=== PATIENT | male | born 1945 | race Caucasian/White ===

== ENCOUNTER → 2018-01-12 | Outpatient (CLI) | payer MEDICARE, OTHER ==
--- NOTE | 2018-01-12 16:12 | RADIOLOGY REPORT (SQ) ---
EXAM DESCRIPTION: MRI LT LOWER JOINT COMBO COMPLETED DATE/TIME: 01/12/2018 12:56 pm REASON FOR STUDY: LEFT ANKLE PAIN M25.572 PAIN IN LEFT ANKLE AND JOINTS OF LEFT FOOT COMPARISON: None. TECHNIQUE: Left ankle images acquired and stored on PACS. Multiplanar images include fat sensitive s equences as T1, fluid sensitive sequences as FST2/STIR, cartilage sensitive sequences as FSPD, and gr adient echo sequences. Additional postcontrast enhanced imaging. Contrast: ProHance GFR: 40 LIMITATIONS: None. FINDINGS: BONE MARROW: No alteration of signal to suggest marrow replacement or edema. No occult fra cture. No large osteophytes. No enhancement. EFFUSIONS: No effusions. OSSEOUS ARTICULATIONS: Normal tibiotalar, subtalar, talonavicular and calcaneocuboid joints. TALAR DOME AND TIBIAL PLAFOND: Mild cartilaginous loss of the central plafond and talar dome. Small medial osteochondral lesion. ACHILLES TENDON: Intact without partial or full-thickness tear. No adjacent bursal fluid or edema. TIBIALIS ANTERIOR TENDON: Intact without edema at the 1st MT attachment. TIBIALIS POSTERIOR TENDON: Normal morphology and no edema at the navicular attachment. No tendon rizo th fluid. FLEXOR HALLUCIS LONGUS AND FLEXOR DIGITORUM TENDONS: Extensive fluid in the flexor hallucis longus te ndon sheath. No roland tear. PERONEUS LONGUS AND BREVIS TENDON: Normal morphology and no tendon sheath fluid. No subluxation. ATFL, CFL, PTFL: Chronic tear of the anterior talofibular ligament. Reminder ligaments are intact. DELTOID LIGAMENT: Visualized components intact. TARSAL TUNNEL: No masses. No muscle atrophy. SINUS TARSI: Minimal reactive edema middle compartment subtalar region. PLANTAR FASCIA: No signal alteration or tear. ADJACENT SOFT TISSUES: No masses. OTHER: No enhancing lesions. IMPRESSION: No enhancing lesions. Minimal inflammation in the sinus tarsus E. Large amount of fluid is present in the flexor hallucis longus tendon sheath. TECHNICAL DOCUMENTATION: JOB ID: [id number]- All Rights Reserved Reading location - IP/workstation name: [email or web address] [id number]
== END ==
LOC: RAD 12:00
PROVIDERS: ATTEND Physician Assistant
DX: M25.572 Pain in left ankle and joints of left foot (principal)
CPT/HCPCS: 82565; 73723; A9576

== ENCOUNTER → 2018-01-26 | Outpatient (CLI) | payer MEDICARE, OTHER ==
--- NOTE | 2018-01-26 10:33 | RADIOLOGY REPORT (SQ) ---
EXAM DESCRIPTION: CT ABD/PELVIS NO ORAL OR IV COMPLETED DATE/TIME: 01/26/2018 9:15 am REASON FOR STUDY: PROSTATE CA (C61) C61 MALIGNANT NEOPLASM OF PROSTATE COMPARISON: None. TECHNIQUE: CT scan of the abdomen and pelvis performed without intravenous or oral contrast. Images reviewed with lung, soft tissue, and bone windows. Reconstructed coronal and sagittal MPR images revi ewed. All images stored on PACS. All CT scanners at this facility use dose modulation, iterative reconstruction, and/or weight based d osing when appropriate to reduce radiation dose to as low as reasonably achievable (ALARA). [facility]: Dose Right [facility]: CareDose [facility]: Dose Right [facility]: Teradose 4D [facility]: [employer] RADIATION DOSE: CT Rad equipment meets quality standard of care and radiation dose reduction techniq ues were employed. CTDIvol: 15.1 mGy. DLP: 827 mGy-cm.mGy. LIMITATIONS: None. FINDINGS: LOWER CHEST: No significant findings. No nodules or infiltrates. NON-CONTRASTED LIVER, SPLEEN, ADRENALS: Evaluation limited by lack of IV contrast. No identified sign ificant masses. PANCREAS: No masses. No peripancreatic inflammatory changes. GALLBLADDER: No identified stones by CT criteria. No inflammatory changes to suggest cholecystitis. RIGHT KIDNEY AND URETER: No suspicious masses. Assessment limited by lack of IV contrast. No signif icant calcifications. No hydronephrosis or hydroureter. LEFT KIDNEY AND URETER: No suspicious masses. Assessment limited by lack of IV contrast. No signifi cant calcifications. No hydronephrosis or hydroureter. AORTA AND RETROPERITONEUM: No aneurysm. No retroperitoneal masses or adenopathy. BOWEL AND PERITONEAL CAVITY: No obvious masses or inflammatory changes. No free fluid. APPENDIX: Normal. PELVIS, BLADDER, AND ABDOMINAL WALL:Prostatectomy. Bladder normal. BONES: No significant findings. OTHER: No other significant finding. IMPRESSION: NO SIGNIFICANT OR ACUTE PROCESS IN THE ABDOMEN OR PELVIS. No metastases. COMMENT: Quality ID # 436: Final reports with documentation of one or more dose reduction techniques (e.g., Automated exposure control, adjustment of the mA and/or kV according to patient size, use of iterative reconstruction technique) TECHNICAL DOCUMENTATION: JOB ID: [id number] [employer]- All Rights Reserved Reading location - IP/workstation name: [email or web address]
--- NOTE | 2018-01-26 13:24 | RADIOLOGY REPORT (SQ) ---
EXAM DESCRIPTION: NM WHOLE BODY BONE SCAN COMPLETED DATE/TIME: 01/26/2018 1:00 pm REASON FOR STUDY: PROSTATE CA (C61) C61 MALIGNANT NEOPLASM OF PROSTATE COMPARISON: CT abdomen pelvis 01/26/2018, 12/24/2009 Whole-body bone scan 04/24/2008 RADIONUCLIDE AND DOSE: 21.5 millicuries Tc99m HDP. The route of agent administration: Intravenous. ADDITIONAL DRUGS AND DOSES: None. TECHNIQUE: Routine delayed images at 3 hours post radionuclide injection acquired of the bony skelet on including anterior and posterior whole-body projections and additional focused images as needed. LIMITATIONS: None. FINDINGS: BONES: There is focal increased uptake over the right frontal bone and right bony orbit re gion. This is of uncertain clinical significance. Consider CT brain for followup. Remainder of the skeletal activity is otherwise unremarkable aside from mild increased uptake at the left ankle, likely related to osteoarthritis. KIDNEYS: Symmetric excretion without obstruction. OTHER: No other significant finding. IMPRESSION: Focal increased uptake over the right orbit and right frontal bone. Consider CT brain f or follow-up, with review of bone windows. Increased uptake at the left ankle likely from osteoarthritis or old trauma COMMENT: Quality measure 147: Current bone scan is compared with any available plain radiographs, p rior bone scans, and CT/MRI. TECHNICAL DOCUMENTATION: JOB ID: [id number] [employer]- All Rights Reserved Reading location - IP/workstation name: [email or web address]
== END ==
LOC: RAD 08:39
PROVIDERS: ATTEND Physician Assistant Medical
DX: C61 Malignant neoplasm of prostate (principal)
CPT/HCPCS: 78306; 74176; A9561; Q9969

== ENCOUNTER → 2018-01-29 | Outpatient (CLI) | payer MEDICARE, OTHER ==
--- NOTE | 2018-01-29 10:38 | RADIOLOGY REPORT (SQ) ---
EXAM DESCRIPTION: CT HEAD WITHOUT COMPLETED DATE/TIME: 01/29/2018 10:15 am REASON FOR STUDY: ABN FINDINGS ON DIAGNOSTIC IMAGING OF SKULL AND HEAD R93.0 ABNORMAL FINDINGS ON D X IMAGING OF SKULL AND HEAD, NEC COMPARISON: Bone scan dated 01/26/2018. TECHNIQUE: Axial images acquired through the brain without intravenous contrast. Images reviewed wi th bone, brain and subdural windows. Additional sagittal and coronal reconstructions were generated. Images stored on PACS. All CT scanners at this facility use dose modulation, iterative reconstruction, and/or weight based d osing when appropriate to reduce radiation dose to as low as reasonably achievable (ALARA). [facility]: Dose Right [facility]: CareDose [facility]: Dose Right [facility]: Teradose 4D [facility]: [employer] RADIATION DOSE: CT Rad equipment meets quality standard of care and radiation dose reduction techniq ues were employed. CTDIvol: 48.6 mGy. DLP: 904 mGy-cm. mGy. LIMITATIONS: None. FINDINGS: VENTRICLES: Normal size and contour. CEREBRUM: No masses. No hemorrhage. No midline shift. No evidence for acute infarction. Normal gra y/white matter differentiation. No areas of low density in the white matter. CEREBELLUM: No masses. No hemorrhage. No alteration of density. No evidence for acute infarction. EXTRAAXIAL SPACES: No fluid collections. No masses. ORBITS AND GLOBE: No intra- or extraconal masses. Normal contour of globe without masses. CALVARIUM: No fracture. There is a subtle sclerotic lesion in the right frontal bone corresponding t o the finding on bone scan. This measures approximately 2 cm in diameter. No bony destruction. Jus t inferior to this bone lesion is a focal area of mild soft tissue irregularity. There is mild incre ased density in the subcutaneous fatty tissues with a small focal depression in the outline of the sc an, suggesting retraction (axial image 18). PARANASAL SINUSES: No fluid or mucosal thickening. SOFT TISSUES: No mass or hematoma. OTHER: No other significant finding. IMPRESSION: 1. FOCAL SUBTLE SCLEROTIC LESION IN THE RIGHT FRONTAL BONE DESCRIBED WITH ADJACENT CHANGES IN THE SKIN AND THE SUBCUTANEOUS FATTY TISSUES. THE SOFT TISSUE FINDINGS SUGGEST AN AREA OF SCARRING, PRESU MABLY RELATED TO OLD INJURY OR POSSIBLY PRIOR SOFT TISSUE INFECTION OR INFLAMMATION RESULTING IN SCAR . RECOMMEND CORRELATION WITH PRIOR HISTORY AND EVALUATION OF THE SKIN IN THIS REGION. THE SKULL LES ION HAS A NONSPECIFIC APPEARANCE. THERE IS NO SIGNIFICANT BONY DESTRUCTION. CANNOT EXCLUDE OSTEOBLA STIC LESION ALTHOUGH NON MALIGNANT SCLEROTIC BONE LESION COULD BE ANOTHER POSSIBILITY. 2. NORMAL BRAIN CT WITHOUT CONTRAST. EVIDENCE OF ACUTE STROKE: NO. COMMENT: Quality ID # 436: Final reports with documentation of one or more dose reduction techniques (e.g., Automated exposure control, adjustment of the mA and/or kV according to patient size, use of iterative reconstruction technique) TECHNICAL DOCUMENTATION: JOB ID: [id number] [employer]- All Rights Reserved Reading location - IP/workstation name: [email or web address] [id number]
== END ==
LOC: RAD 09:50
PROVIDERS: ATTEND Internal Medicine
DX: R93.0 Abnormal findings on diagnostic imaging of skull and head, not elsewhere classified (principal)
CPT/HCPCS: 70450

== ENCOUNTER → 2018-02-10 | Outpatient (CLI) | payer MEDICARE, OTHER ==
--- NOTE | 2018-02-10 13:23 | RADIOLOGY REPORT (SQ) ---
EXAM DESCRIPTION: MRI LT UPPER JOINT WITHOUT COMPLETED DATE/TIME: 02/10/2018 11:29 am REASON FOR STUDY: M25.512 PAIN IN LEFT SHOULDER M25.512 PAIN IN LEFT SHOULDER COMPARISON: None. TECHNIQUE: Left shoulder images acquired and stored on PACS. Multiplanar imaging to include fat sens itive sequences such as T1, water sensitive sequences such as FST2/STIR, cartilage sensitive sequence s such as FSPD/gradient-echo sequences. LIMITATIONS: None. FINDINGS: BONE MARROW AND CORTEX: No worrisome bone lesions or marrow replacement. No occult fractur es. JOINT OR BURSAL EFFUSION: No significant joint or bursal fluid. No suggestion of loose bodies. GLENO-HUMERAL ARTICULATION: Normal articulation. No subluxation. No cystic change. No osteophytes or cartilage loss. ACROMION AND AC JOINT: Mild predominantly dorsal degenerative slight overgrowth. No subacromial co mpromise. ROTATOR CUFF AND INTERVAL: Mild undersurface/interstitial partial tear along cuff insertion. This li es at the interface between supraspinatus and infraspinous portions. No suggestion of high-grade par tial or full-thickness tear. No cuff muscle atrophy. Mild scar in the rotator interval, possibly reflecting adhesive capsulitis. LABRUM AND BICEPS LABRAL COMPLEX: Irregular fraying in the labrum. Biceps intact. REMAINDER OF LABRUM AND IGHL : No evidence of tear. Thickening and scar along the inferior anterior capsule. Likely reflective of adhesive capsulitis. PERIARTICULAR AND ADJACENT SOFT TISSUES: No masses or abnormal nodes. OTHER: No other significant finding. IMPRESSION: 1. Relatively focal partial cuff tear. No full-thickness breech. 2. Probable adhesive capsulitis, secondary signs as above. TECHNICAL DOCUMENTATION: JOB ID: [id number] [employer]- All Rights Reserved Reading location - IP/workstation name: [email or web address]
== END ==
LOC: RAD 11:17
PROVIDERS: ATTEND Physician Assistant
DX: M25.512 Pain in left shoulder (principal)

== ENCOUNTER → 2018-10-15 | Outpatient (CLI) | payer MEDICARE, OTHER ==
--- NOTE | 2018-10-15 12:06 | RADIOLOGY REPORT (SQ) ---
EXAM DESCRIPTION: CT ABD/PELVIS WITH IV ORAL COMPLETED DATE/TIME: 10/15/2018 10:09 am REASON FOR STUDY: LLQ PAIN (R10.32), ABD TENDERNESS (R10.817), PROSTATE CA (C61) R10.32 LEFT LOWER QUADRANT PAIN R10.817 GENERALIZED ABDOMINAL TENDERNESS R10.814 LEFT LOWER QUADRANT ABDOMINAL TENDER NESS COMPARISON: 01/26/2018 TECHNIQUE: CT scan of the abdomen and pelvis performed using helical scanning technique with dynamic intravenous contrast injection. Oral contrast. Images reviewed with lung, soft tissue, and bone win dows. Reconstructed coronal and sagittal MPR images reviewed. Delayed images for evaluation of the ur inary system also acquired. All images stored on PACS. All CT scanners at this facility use dose modulation, iterative reconstruction, and/or weight based d osing when appropriate to reduce radiation dose to as low as reasonably achievable (ALARA). [facility]: Dose Right [facility]: CareDose [facility]: Dose Right [facility]: Teradose 4D [facility]: [employer] CONTRAST TYPE AND DOSE: contrast/concentration: Isovue 350.00 mg/ml; Total Contrast Delivered: 100.0 ml; Total Saline Delivered: 72.0 ml RENAL FUNCTION: Creatinine 1.5 RADIATION DOSE: CT Rad equipment meets quality standard of care and radiation dose reduction techniq ues were employed. CTDIvol: 10.9 - 12.3 mGy. DLP: 1295 mGy-cm.. LIMITATIONS: None. FINDINGS: LOWER CHEST: No significant findings. No nodules or infiltrates. LIVER: Normal size. No masses. No dilated ducts. SPLEEN: Normal size. No focal lesions. PANCREAS: No masses. No significant calcifications. No adjacent inflammation or peripancreatic fluid collections. Pancreatic duct not dilated. GALLBLADDER: No identified stones by CT criteria. No inflammatory changes to suggest cholecystitis. ADRENAL GLANDS: No significant masses or asymmetry. RIGHT KIDNEY AND URETER: No solid masses. No significant calcifications. No hydronephrosis or hyd roureter. LEFT KIDNEY AND URETER: No solid masses. No significant calcifications. No hydronephrosis or hydr oureter. AORTA AND VESSELS: No aneurysm. No dissection. Renal arteries, SMA, celiac without stenosis. RETROPERITONEUM: No retroperitoneal adenopathy, hemorrhage or masses. BOWEL AND PERITONEAL CAVITY: Considerable stool is present. No obvious bowel mass or inflammation. APPENDIX: Not identified. PELVIS: No mass. No free fluid. Normal bladder. ABDOMINAL WALL: No masses. No hernias. BONES: No significant or acute findings. OTHER: No other significant finding. IMPRESSION: Possible constipation. No acute findings in the abdomen or pelvis. TECHNICAL DOCUMENTATION: JOB ID: [id number] Quality ID # 436: Final reports with documentation of one or more dose reduction techniques (e.g., Au tomated exposure control, adjustment of the mA and/or kV according to patient size, use of iterative reconstruction technique) 2010 [employer]- All Rights Reserved Reading location - IP/workstation name: [email or web address]
== END ==
LOC: RAD 09:11
PROVIDERS: ATTEND Internal Medicine Gastroenterology
DX: C61 Malignant neoplasm of prostate (principal); R10.817 Generalized abdominal tenderness
CPT/HCPCS: 74177; 82565

== ENCOUNTER → 2018-12-06 | Outpatient (CLI) | payer MEDICARE, OTHER ==
[2018-12-06 14:09] LABS: ABSOLUTE EOSINOPHILS # (AUTO) 0.1 10^3/uL (0.0-0.6); ABSOLUTE LYMPHOCYTES (AUTO) 1.8 10^3/uL (0.5-4.7); ABSOLUTE MONOCYTES (AUTO) 0.6 10^3/uL (0.1-1.4); ABSOLUTE NEUT (AUTO) 3.8 10^3/uL (1.7-8.2); BASOPHILS % (AUTO) 0.7 % (0-2); HEMATOCRIT 43.6 % (37.9-51.0); HEMOGLOBIN 15.1 g/dL (13.5-17.0); LYMPHOCYTES % (AUTO) 27.8 % (13-45); MEAN CORPUSCULAR HEMOGLOBIN 30.4 pg (27.0-33.4); MEAN CORPUSCULAR HGB CONC 34.7 g/dL (32.0-36.0); MEAN CORPUSCULAR VOLUME 88 fl (80-97); PLATELET COUNT 207 10^3/uL (150-450); RED BLOOD COUNT 4.97 10^6/uL (4.35-5.55); RED CELL DISTRIBUTION WIDTH 12.9 % (11.5-14.0); SEGMENTED NEUTROPHILS % (AUTO) 60.5 % (42-78); TOTAL CELLS COUNTED % (AUTO) 100 %; WHITE BLOOD COUNT 6.4 10^3/uL (4.0-10.5)
[2018-12-06 14:21] LABS: ALANINE AMINOTRANSFERASE 19 U/L (21-72); ALBUMIN 4.7 g/dL (3.5-5.0); ALKALINE PHOSPHATASE 73 U/L (38-126); ANION GAP 14 (5-19); ASPARTATE AMINO TRANSFERASE 28 U/L (17-59); BILIRUBIN,DIRECT 0.3 mg/dL (0.0-0.4); BILIRUBIN,TOTAL 1.1 mg/dL (0.2-1.3); BLOOD UREA NITROGEN 22 mg/dL (7-20); CALCIUM 10.3 mg/dL (8.4-10.2); CARBON DIOXIDE 25 mmol/L (22-30); CHLORIDE 106 mmol/L (98-107); GLUCOSE 134 mg/dL (75-110); LIPASE 69.1 U/L (23-300); POTASSIUM 5.5 mmol/L (3.6-5.0); SODIUM 144.8 mmol/L (137-145); TOTAL PROTEIN 7.5 g/dL (6.3-8.2)
== END ==
LOC: OD 12:38
PROVIDERS: ATTEND Physician Assistant Surgical
DX: R10.13 Epigastric pain (principal); R11.0 Nausea
CPT/HCPCS: 36415; 80048; 80076; 83690; 85025

== ENCOUNTER → 2019-07-29 | Outpatient (CLI) | payer MEDICARE, OTHER ==
--- NOTE | 2019-07-29 09:04 | RADIOLOGY REPORT (SQ) ---
EXAM DESCRIPTION: CT CHEST WITHOUT COMPLETED DATE/TIME: 07/29/2019 7:47 am REASON FOR STUDY: PROSTATE CA (C61) C61 MALIGNANT NEOPLASM OF PROSTATE COMPARISON: None. TECHNIQUE: CT scan performed of the chest without intravenous contrast. Images reviewed with lung, soft tissue and bone windows. Reconstructed coronal and sagittal MPR images reviewed. All images st ored on PACS. All CT scanners at this facility use dose modulation, iterative reconstruction, and/or weight based d osing when appropriate to reduce radiation dose to as low as reasonably achievable (ALARA). [facility]: Dose Right [facility]: CareDose [facility]: Dose Right [facility]: Teradose 4D [facility]: [facility] RADIATION DOSE: CT Rad equipment meets quality standard of care and radiation dose reduction techniq ues were employed. CTDIvol: 7.0 - 8.5 mGy. DLP: 730 mGy-cm. mGy. LIMITATIONS: No technical limitations. FINDINGS: LUNGS AND PLEURA: There is a 5 mm nodule in the right lung which is flattened, 1 mm thick, and closely aligned with the minor fissure. No other nodules or masses, infiltrates, or pneumothora x. No pleural effusions or pleural calcifications. HILAR AND MEDIASTINAL STRUCTURES: No identified masses or abnormal nodes. No obvious aneurysm. HEART AND VASCULAR STRUCTURES: No aneurysm. No pericardial effusion. UPPER ABDOMEN: No significant findings. Limited exam. THYROID AND OTHER SOFT TISSUES: No masses. No adenopathy. BONES: No significant finding. HARDWARE: None in the chest. OTHER: No other significant findings. IMPRESSION: NODULE IN THE RIGHT LUNG WHICH HAS CHARACTERISTICS OF AN INCIDENTAL LYMPH NODE ALONG THE MINOR FISSURE. NO OTHER SIGNIFICANT FINDING ON NON-CONTRASTED CHEST CT. TECHNICAL DOCUMENTATION: JOB ID: [id number] Quality ID # 436: Final reports with documentation of one or more dose reduction techniques (e.g., Au tomated exposure control, adjustment of the mA and/or kV according to patient size, use of iterative reconstruction technique) 2010 [employer]- All Rights Reserved Reading location - IP/workstation name: [email or web address]
--- NOTE | 2019-07-29 09:08 | RADIOLOGY REPORT (SQ) ---
EXAM DESCRIPTION: CT ABD/PELVIS NO ORAL OR IV COMPLETED DATE/TIME: 07/29/2019 7:47 am REASON FOR STUDY: PROSTATE CA (C61) C61 MALIGNANT NEOPLASM OF PROSTATE COMPARISON: 10/15/2018. TECHNIQUE: CT scan of the abdomen and pelvis performed without intravenous or oral contrast. Images reviewed with lung, soft tissue, and bone windows. Reconstructed coronal and sagittal MPR images revi ewed. All images stored on PACS. All CT scanners at this facility use dose modulation, iterative reconstruction, and/or weight based d osing when appropriate to reduce radiation dose to as low as reasonably achievable (ALARA). [facility]: Dose Right [facility]: CareDose [facility]: Dose Right [facility]: Teradose 4D [facility]: [employer] RADIATION DOSE: mGy. LIMITATIONS: None. FINDINGS: LOWER CHEST: No significant findings. No nodules or infiltrates. NON-CONTRASTED LIVER, SPLEEN, ADRENALS: Evaluation limited by lack of IV contrast. No identified sign ificant masses. PANCREAS: No masses. No peripancreatic inflammatory changes. GALLBLADDER: No identified stones by CT criteria. No inflammatory changes to suggest cholecystitis. RIGHT KIDNEY AND URETER: No suspicious masses. Assessment limited by lack of IV contrast. Small cirilo yceal calculi. No hydronephrosis or hydroureter. LEFT KIDNEY AND URETER: No suspicious masses. Assessment limited by lack of IV contrast. Small davion ceal calculi. No hydronephrosis or hydroureter. AORTA AND RETROPERITONEUM: No aneurysm. No retroperitoneal masses or adenopathy. BOWEL AND PERITONEAL CAVITY: No obvious masses or inflammatory changes. No free fluid. APPENDIX: Not visualized. PELVIS, BLADDER, AND ABDOMINAL WALL:Previous prostatectomy. Numerous surgical clips. No abnormal ma sses. No free fluid. Bladder normal. BONES: No significant findings. OTHER: No other significant finding. IMPRESSION: SMALL NONOBSTRUCTING CALYCEAL CALCULI IN BOTH KIDNEYS. NO OTHER SIGNIFICANT OR ACUTE VA OCESS IN THE ABDOMEN OR PELVIS. COMMENT: Quality ID # 436: Final reports with documentation of one or more dose reduction techniques (e.g., Automated exposure control, adjustment of the mA and/or kV according to patient size, use of iterative reconstruction technique) TECHNICAL DOCUMENTATION: JOB ID: [id number] [employer] All Rights Reserved Reading location - IP/workstation name: [email or web address]
--- NOTE | 2019-07-29 15:19 | RADIOLOGY REPORT (SQ) ---
EXAM DESCRIPTION: NM WHOLE BODY BONE SCAN COMPLETED DATE/TIME: 07/29/2019 1:44 pm REASON FOR STUDY: PROSTATE CA (C61 C61 MALIGNANT NEOPLASM OF PROSTATE COMPARISON: 01/26/2018 RADIONUCLIDE AND DOSE: 20 millicuries Tc99m HDP. The route of agent administration: Intravenous. ADDITIONAL DRUGS AND DOSES: None. TECHNIQUE: Routine delayed images at 3 hours post radionuclide injection acquired of the bony skelet on including anterior and posterior whole-body projections and additional focused images as needed. LIMITATIONS: None. FINDINGS: BONES: There is persistent focal uptake in the calvarium and in the right orbit. No new a reas of abnormal uptake are present. KIDNEYS: Symmetric excretion without obstruction. OTHER: No other significant finding. IMPRESSION: Persistent increased uptake in the calvarium in right orbit. No new findings. COMMENT: Quality measure 147: Current bone scan is compared with any available plain radiographs, p rior bone scans, and CT/MRI. TECHNICAL DOCUMENTATION: JOB ID: [id number] [employer]- All Rights Reserved Reading location - IP/workstation name: [email or web address]
== END ==
LOC: RAD 07:10
PROVIDERS: ATTEND Internal Medicine
DX: C61 Malignant neoplasm of prostate (principal); N20.0 Calculus of kidney
CPT/HCPCS: 78306; 71250; 74176; A9561; Q9969

== ENCOUNTER 2019-12-04 21:52 | Emergency (ER) | payer MEDICARE, OTHER ==
[2019-12-04] MEDS ORDERED: NORMAL SALINE 1000 ML 1,000 ML IV ONE (22:56)
[2019-12-04] MEDS ORDERED: ONDANSETRON HCL INJ/PF 4 MG/2 ML SDV IV ONE (22:56)
--- NOTE | 2019-12-04 22:58 | ER Document Report ---
ED Medical Screen (RME) - General Chief Complaint: Lower Abdominal Pain Stated Complaint: ABDOMINAL PAIN Time Seen by Provider: 12/04/19 22:47 Primary Care Provider: KHANG PHILLIPS MD [Primary Care Provider] - Follow up as needed TRAVEL OUTSIDE OF THE [place] IN LAST 30 DAYS: No - HPI Notes: 12/04/19 22:57 74-year-old male to the emergency department with complaints of left lower quadrant abdominal pain that has been getting progressively worse since Thursday night. He states he and his went out to dinner in [place] and prior to leaving the restaurant he started to experience diarrhea. They then had a stop second time on the way home because he had another episode of diarrhea. When they got home he started to have nausea vomiting and diarrhea and this is negin nued through today. He states that initially his entire abdomen hurt but now it is localized to the left lower side. He states that he seen blood in both his emesis and in his diarrhea. He denies any recent travel. He denies any recent antibiotic use. He denies any sick contacts. Everybody had roast beef, mashed potatoes, broccoli and no one else got sick. I performed a brief medical screening exam on the patient determined that the patient needs further evaluation and management by main side provider. I have placed initial orders to help expedite care. - Related Data Allergies/Adverse Reactions: codeine Allergy (Verified 12/04/19 22:55) morphine Allergy (Verified 12/04/19 22:55) Home Medications: Xtandi. Omeprazole. Gabapentin. loasartan. Loratadine. Calcium+ D oyster. Montelukast. Tramadol. atorvastatin. finasteride. pantoprazole. megestrol acetate Past Medical History - Social History Chew tobacco use (# tins/day): No Frequency of alcohol use: None Drug Abuse: None - Past Medical History Cardiac Medical History: Reports: Hx Hypertension Pulmonary Medical History: Reports: Hx Bronchitis - 2009 Denies: Hx Tuberculosis Endocrine Medical History: Reports: Hx Diabetes Mellitus Type 2 Musculoskeltal Medical History: Reports Hx Arthritis Past Surgical History: Reports: Hx Urinary Tract Surgery - radical prostectomy. Denies: Hx Pacemaker - Immunizations Hx Diphtheria, Pertussis, Tetanus Vaccination: Yes Physical Exam - Vital signs Vitals: Temp Pulse Resp BP Pulse Ox 98.3 F 73 18 134/76 H 96 12/04/19 22:00 12/04/19 22:00 12/04/19 22:00 12/04/19 22:00 12/04/19 22:00 Course - Vital Signs Vital signs: Temp Pulse Resp BP Pulse Ox 98.3 F 73 18 134/76 H 96 12/04/19 22:00 12/04/19 22:00 12/04/19 22:00 12/04/19 22:00 12/04/19 22:00 Doctor's Discharge - Discharge Referrals: KHANG PHILLIPS MD [Primary Care Provider] - Follow up as needed
[2019-12-04 23:39] LABS: ABSOLUTE EOSINOPHILS # (AUTO) 0.1 10^3/uL (0.0-0.6); ABSOLUTE LYMPHOCYTES (AUTO) 1.5 10^3/uL (0.5-4.7); ABSOLUTE MONOCYTES (AUTO) 0.8 10^3/uL (0.1-1.4); ABSOLUTE NEUT (AUTO) 7.3 10^3/uL (1.7-8.2); BASOPHILS % (AUTO) 0.5 % (0-2); EOSINOPHILS % (AUTO) 0.5 % (0-6); HEMATOCRIT 43.7 % (37.9-51.0); HEMOGLOBIN 15.2 g/dL (13.5-17.0); LYMPHOCYTES % (AUTO) 15.2 % (13-45); MEAN CORPUSCULAR HEMOGLOBIN 30.8 pg (27.0-33.4); MEAN CORPUSCULAR HGB CONC 34.8 g/dL (32.0-36.0); MEAN CORPUSCULAR VOLUME 89 fl (80-97); MONOCYTES % (AUTO) 8.1 % (3-13); PLATELET COUNT 239 10^3/uL (150-450); RED BLOOD COUNT 4.93 10^6/uL (4.35-5.55); RED CELL DISTRIBUTION WIDTH 13.9 % (11.5-14.0); SEGMENTED NEUTROPHILS % (AUTO) 75.7 % (42-78); TOTAL CELLS COUNTED % (AUTO) 100 %; WHITE BLOOD COUNT 9.7 10^3/uL (4.0-10.5)
[2019-12-05 00:10] LABS: ALBUMIN 4.5 g/dL (3.5-5.0); ALKALINE PHOSPHATASE 85 U/L (38-126); ANION GAP 14 (5-19); ASPARTATE AMINO TRANSFERASE 35 U/L (17-59); BILIRUBIN,DIRECT 0.3 mg/dL (0.0-0.4); BILIRUBIN,TOTAL 1.2 mg/dL (0.2-1.3); BLOOD UREA NITROGEN 27 mg/dL (7-20); CALCIUM 10.1 mg/dL (8.4-10.2); CARBON DIOXIDE 23 mmol/L (22-30); CHLORIDE 105 mmol/L (98-107); GLUCOSE 210 mg/dL (75-110); POTASSIUM 5.1 mmol/L (3.6-5.0); TOTAL PROTEIN 8.1 g/dL (6.3-8.2)
[2019-12-05] MEDS ORDERED: HYDROMORPHONE HCL INJ/PF 2 MG/ML AMPULE IV ONE (01:44)
--- NOTE | 2019-12-05 01:58 | RADIOLOGY REPORT (SQ) ---
EXAM DESCRIPTION: CT scan of the abdomen and pelvis with IV contrast CLINICAL HISTORY: 74 years Male; llq abd pain history of prostate cancer. TECHNIQUE: CT of the abdomen and pelvis with intravenous contrast. Delayed imaging of the abdomen and pelvis was also performed. All CT scans at this facility use dose modulation, iterative reconstruction, and/or weight based dosing when appropriate to reduce radiation dose to as low as reasonably achievable. This exam was performed according to our department optimization program which includes automated exposure control, adjustment of the mA and/or kv according to patient size and/or use of iterative reconstruction technique. COMPARISON: CT scan of the abdomen and pelvis October 15, 2018 FINDINGS: Lower chest: Minimal dependent density in the lung bases. Heart size is normal. Abdomen: Liver and biliary tree: Subtle fatty infiltration of the liver. The gallbladder is unremarkable. No biliary dilatation. Portal vein and hepatic veins are patent. Pancreas: Normal Spleen:Within normal limits Kidneys: There is delayed enhancement of the left kidney with respect to the right and there is left-sided hydronephrosis and hydroureter. The ureter is dilated down to the low pelvis where a 3 mm obstructing stone is noted. Distal to this the ureter is decompressed. In the upper pole of the left kidney is a 1 mm nonobstructing stone. No definitive stones are seen on the right. On delayed images there is excretion from the right kidney but no appreciable contrast excretion from the left. Adrenal glands:Within normal limits Vascular structures: Scattered vascular plaque is present in the aorta and visceral vessels. No aneurysm. Retroperitoneum: Postsurgical change of pelvic lymphadenectomy. No retroperitoneal mass. Abdominal wall: Postsurgical changes seen in the anterior abdominal wall in the pelvis. No hernia. GI: Minimal diverticula in the colon. No evidence of acute diverticulitis. No focal bowel wall thickening. No inflammation. Appendix: The appendix is not seen General: No free air. No free fluid Pelvis: Lymph nodes: Postsurgical change of pelvic lymph node resection. Bladder: The bladder is empty. Pelvis: Prostate gland appears to be surgically absent. Bones: No acute bone findings. IMPRESSION: 1. Left-sided hydronephrosis and hydroureter secondary to a 3 mm distal ureteral stone. 2. 1 mm left upper pole kidney stone is also seen. 3. No acute process in the abdomen or pelvis.
--- NOTE | 2019-12-05 02:12 | ER Document Report ---
ED General - General Chief Complaint: Lower Abdominal Pain Stated Complaint: ABDOMINAL PAIN Time Seen by Provider: 12/04/19 22:47 Primary Care Provider: KHANG PHILLIPS MD [Primary Care Provider] - Follow up as needed Notes: 74 year old male presents to the ED complaining of diarrhea starting late Thursday night early Thursday morning with a small amount of blood in it, vomiting starting on Thursday also with a small amount of blood in it and now pain in his chest from vomiting as well as pain in his abdomen mostly in the left lower quadrant. Denies any dizziness or lightheadedness, denies any shortness of stew ath, denies any fevers. Denies any history of diverticulitis. TRAVEL OUTSIDE OF THE [place] IN LAST 30 DAYS: No - Related Data Allergies/Adverse Reactions: codeine Allergy (Verified 12/04/19 22:55) morphine Allergy (Verified 12/04/19 22:55) Home Medications: Xtandi. Omeprazole. Gabapentin. loasartan. Loratadine. Calcium+ D oyster. Montelukast. Tramadol. atorvastatin. finasteride. pantoprazole. megestrol acetate Past Medical History - General Information source: Patient, Relative - - Social History Smoking Status: Former Smoker Chew tobacco use (# tins/day): No Frequency of alcohol use: None Drug Abuse: None Family History: Other - unknown pt adopted Patient has suicidal ideation: No Patient has homicidal ideation: No - Past Medical History Cardiac Medical History: Reports: Hx Hypertension Pulmonary Medical History: Reports: Hx Bronchitis - 2010 Denies: Hx Tuberculosis Endocrine Medical History: Reports: Hx Diabetes Mellitus Type 2 Musculoskeletal Medical History: Reports Hx Arthritis Past Surgical History: Reports: Hx Urinary Tract Surgery - radical prostectomy. Denies: Hx Pacemaker - Immunizations Hx Diphtheria, Pertussis, Tetanus Vaccination: Yes Hx Pneumococcal Vaccination: 07/12/13 Review of Systems - Review of Systems Constitutional: No symptoms reported EENT: No symptoms reported Cardiovascular: See HPI, Chest pain Respiratory: No symptoms reported. denies: Cough, Hurts to breathe Gastrointestinal: See HPI, Abdominal pain, Diarrhea, Nausea, Vomiting, Blood streaked bowels, Blood in vomit Genitourinary: No symptoms reported -: Yes All other systems reviewed and negative Physical Exam - Vital signs Vitals: Temp Pulse Resp BP Pulse Ox 98.3 F 73 18 134/76 H 96 12/04/19 22:00 12/04/19 22:00 12/04/19 22:00 12/04/19 22:00 12/04/19 22:00 Interpretation: Normal - Notes Notes: GENERAL: Alert, interacts well. Slightly pale. HEAD: Normocephalic, atraumatic EYES: Pupils equal, round and reactive to light, extraocular movements intact. ENT: Oral mucosa moist, tongue midline. NECK: Full range of motion, supple, trachea midline. LUNGS: Clear to auscultation bilaterally, no wheezes, rales or rhonchi, no respiratory distress. HEART: Regular rate and rhythm, no murmurs, gallops, rubs. ABDOMEN: Soft, mild diffuse tenderness to palpation, slightly increased in the left lower quadrant, no guarding, no rigidity, no rebounding, nondistended, bowel sounds present in all 4 quadrants. EXTREMITIES: Moves all 4 extremities spontaneously. No cyanosis. NEUROLOGICAL: Alert and oriented x3, normal speech. PSYCH: Normal mood, normal affect. SKIN: Warm, Dry, normal turgor, no rashes or lesions noted. Course - Re-evaluation Re-evalutation: 12/05/19 02:49 CBC unremarkable, CMP shows slightly elevated potassium at 5.1, BUN and creatinine are both elevated at 27 and 1.74 respectively, these numbers are quite similar to almost exactly 1 year ago, glucose elevated at 210, he is a known diabetic, troponin is pending though I suspect his chest pain is coming from all the vomiting that he has been doing. Urinalysis shows large blood, no ketones and no signs of infection. Abdomen/Pelvis CT 12/04/19 22:55 IMPRESSION: 1. Left-sided hydronephrosis and hydroureter secondary to a 3 mm distal ureteral stone. 2. 1 mm left upper pole kidney stone is also seen. 3. No acute process in the abdomen or pelvis. I suspect the patient had 2 separate things going on. Suspect the patient either had a viral syndrome or food poisoning that caused him to have a nausea vomiting and diarrhea for the past 3 days, the pain in his left lower quadrant currently is being caused by the kidney stone. There is no evidence of infect ion. Patient will be given medications for symptomatic relief if he can pass a p.o. challenge and then discharged home. 12/05/19 03:32 Troponin is negative. 12/05/19 04:04 Patient is feeling much better, tolerated oral challenge, is discharged home. - Vital Signs Vital signs: Temp Pulse Resp BP Pulse Ox 98.3 F 70 15 139/78 H 97 12/05/19 03:55 12/05/19 03:55 12/05/19 03:55 12/05/19 03:55 12/05/19 03:55 - Laboratory Result Diagrams: 12/04/19 23:27 12/04/19 23:27 Laboratory results interpreted by me: 12/04/19 12/05/19 23:27 02:07 Potassium 5.1 H BUN 27 H Creatinine 1.74 H Est GFR ( Amer) 47 L Est GFR (MDRD) Non-Af 39 L Glucose 210 H Urine Glucose (UA) >=500 H Urine Blood LARGE H - EKG Interpretation by Me Additional EKG results interpreted by me: 12/05/19 02:50 EKG shows sinus rhythm at a rate of 79, left axis deviation, interventricular conduction delay, no ST segment elevations or depressions, no T wave inversions, 1 PAC per my interpretation. Discharge - Discharge Clinical Impression: Nausea vomiting and diarrhea, Shivani-Fox tear, Calculus of distal left ureter Condition: Stable Disposition: HOME, SELF-CARE Additional Instructions: I have prescribed Zofran and Phenergan for your nausea and vomiting. The Zofran will dissolve under your tongue and stop the vomiting, you may use the Phenergan to decrease your nausea as well if the Zofran does not completely relieve your nausea. You may also use Imodium as directed [id number] to help with your diarrhea. Kidney Stone You are passing or have passed a kidney stone. These stones are usually due to increased calcium or uric acid concentrations in your urine. Stones within the kidney itself are not painful. The pain occurs as the stone leaves the kidney to pass down the long tube, called the ureter, leading to the bladder. If the stone is small, it will usually pass by itself. Most patients can pass the stone at home. You will usually receive medications for pain, nausea or vomiting, and sometimes a medication to assist in passing the kidney stone. However, if the pain is very severe or if vomiting prevents you from taking oral pain medications, you may need to return for further treatment. Drink three or four quarts of fluids per day. You will be given pain medication (if needed) and urine strainers. Strain all your urine to see if the stone passes. If your doctor has asked you to bring the stone in for analysis, return with the stone once it has passed. Return if pain or vomiting become severe, if you develop a high fever, if you are unable to pass your urine, or if other unusual symptoms occur. Please take ibuprofen 600 mg every 8 hours to help decrease your pain. If you continue to have pain despite taking this medication you may use the Percocet 1 tablet every 4 hours as needed for severe breakthrough pain. You should also take Pyridium, this is the same thing as Azo which is available [id number], it will help to numb your kidneys, ureters and bladder to decrease the pain as the stone moves. Finally we have prescribed Flomax, typically this is used to treat prostate problems but in this case may use it to help expand your ureters to help the kidney stone will pass more quickly. Please return to the emergency department for worsening pain, temperature of 100.4 greater or any new or concerning symptoms. Prescriptions: Oxycodone HCl/Acetaminophen [Percocet 5-325 mg Tablet] 1 tab PO Q4HP PRN #15 tab PRN Reason: Promethazine HCl [Phenergan 25 mg Tablet] 25 mg PO Q4HP PRN #12 tablet PRN Reason: Ondansetron [Zofran Odt 4 mg Tablet] 1 tab PO Q4HP PRN #10 tab.rapdis PRN Reason: Tamsulosin HCl [Flomax 0.4 mg Cap.sr] 0.4 mg PO DAILY #7 cap.sr.24h Phenazopyridine HCl [Pyridium 200 mg Tablet] 200 mg PO TID #15 tablet Referrals: KHANG PHILLIPS MD [Primary Care Provider] - Follow up as needed
[2019-12-05 02:22] LABS: APPEARANCE,URINE SLIGHTLY-CLOUDY; BILIRUBIN,URINE NEGATIVE (NEGATIVE); COLOR,URINE YELLOW; GLUCOSE, URINE >=500 mg/dL (NEGATIVE); KETONES,URINE NEGATIVE (NEGATIVE); LEUKOCYTE ESTERASE,URINE NEGATIVE (NEGATIVE); NITRITE,URINE NEGATIVE (NEGATIVE); PROTEIN,URINE NEGATIVE (NEGATIVE); URINE SPECIFIC GRAVITY 1.042; UROBILINOGEN,URINE NEGATIVE mg/dL (<2.0)
[2019-12-05] MEDS ORDERED: LOPERAMIDE HCL 2 MG CAPSULE PO ONE (02:47)
[2019-12-05] MEDS ORDERED: PROMETHAZINE HCL 25 MG TABLET PO ONE (02:47)
[2019-12-05] MEDS ORDERED: ONDANSETRON HCL INJ/PF 4 MG/2 ML SDV IV ONE (02:47)
[2019-12-05] MEDS ORDERED: KETOROLAC TROMETHAMINE INJ/PF 30 MG/1 ML SDV IV ONE (02:47)
[2019-12-05] MEDS ORDERED: PHENAZOPYRIDINE HCL 200 MG TABLET PO ONE (02:52)
[2019-12-05 03:58] VITALS: BP 139/78
--- NOTE | 2019-12-05 08:27 | EKG REPORT ---
SEVERITY:- ABNORMAL ECG - SINUS RHYTHM ATRIAL PREMATURE COMPLEX NONSPECIFIC IVCD WITH LAD : Confirmed by: Mariya Medina 05-Dec-2019 08:25:54
== END 2019-12-05 04:11 | disposition home or self-care (01) ==
LOC: ER 21:52
DX: N20.1 Calculus of ureter (principal); R11.2 Nausea with vomiting, unspecified; R19.7 Diarrhea, unspecified; K22.6 Gastro-esophageal laceration-hemorrhage syndrome; R10.30 Lower abdominal pain, unspecified; R19.5 Other fecal abnormalities; R07.9 Chest pain, unspecified; R10.32 Left lower quadrant pain; Z79.899 Other long term (current) drug therapy; Z87.891 Personal history of nicotine dependence; I10 Essential (primary) hypertension; E11.9 Type 2 diabetes mellitus without complications
CPT/HCPCS: 93005; 96376; 99284; 96361; 96374; 96375; 36415; 83690; 85025; 80053; 81001; 84484; 74177; 93010; A9270 ×3; J1885; J1170; J2405; J7030; J3490

== ENCOUNTER 2020-04-10 10:14 | Day surgery (SDC) | payer MEDICARE, OTHER ==
[~2020-04-10 10:14] MED LIST: BUPIVACAINE HCL 0.75% INJ/PF (7.5 MG/1 ML) 10 ML SDV OD PRN; FENTANYL CITRATE INJ/PF 100 MCG/2 ML AMPUL ONE; KETOROLAC TROMETHAMINE 0.45% 4 DROP/0.4 ML DROPERETTE OD PRN; LIDOCAINE 1% INJ-PF (10 MG/ML) 30 ML SDV ONE; LIDOCAINE 4% INJ/PF (40 MG/ML) 5 ML AMPUL OD PRN; MIDAZOLAM 2 MG/2 ML INJ ONE; ONDANSETRON HCL INJ/PF 4 MG/2 ML SDV ONE
[2020-04-10] MEDS: BESIFLOXACIN HCL 0.6% OPH SUSP 5 ML BOTTLE OD PRN ×4 (10:22→11:19)
[2020-04-10] MEDS: TROPICAMIDE 1% OPH SOLN 15 ML OD PRN ×3 (10:22→10:42)
[2020-04-10] MEDS: CYCLOPENTOLATE 0.2%/PHENYLEPHRINE 1% OPH SOLN 2 ML OD PRN ×3 (10:22→10:42)
[2020-04-10] MEDS: TETRACAINE HCL 0.5% OPH SOLN 4 ML OD PRN ×3 (10:22→10:49)
[2020-04-10] MEDS: LIDOCAINE 1%/PHENYLEPHRINE 1.5% 1 ML VIAL ONE ×2 (10:58→11:06)
[2020-04-10] MEDS: EPINEPHRINE INJ/PF 1 MG/1 ML AMPULE ONE ×2 (10:59→11:06)
[2020-04-10] MEDS: CHONDR SU A NA/HYALUR INTRAOC KIT (SURGICARE) ONE ×2 (10:59→11:06)
[2020-04-10] MEDS: DORZOLAMIDE HCL 2%/TIMOLOL MALEAT 0.5% OPH SOLN 10 ML OD PRN ×2 (11:19)
--- NOTE | 2020-04-10 12:24 | Operative Report ---
Operative Report-[facility] Operative Report: DATE OF SURGERY: 04/10/2020 PREOPERATIVE DIAGNOSIS: CATARACT, RIGHT EYE. POSTOPERATIVE DIAGNOSIS: CATARACT, RIGHT EYE. PROCEDURE PERFORMED: PHACOEMULSIFICATION WITH POSTERIOR CHAMBER INTRAOCULAR LENS, RIGHT EYE. Intraocular Lens Model : ZCBOO 20.0 Total Phaco Time: 4.17 CDE SURGEON: ARI YOUNG MD ANESTHESIA: TOPICAL WITH MAC. INDICATIONS FOR SURGERY: Difficulty seeing words on TV and driving at night. PROCEDURE: The patient was brought to the Operating Room and placed on the operative table. Following tetracaine drops, topical anesthesia was administered. This consisted of instrument wipe pledgets soaked in a solution of 4% Xylocaine mixed with 0.75% Marcaine in a 1:2 ratio. A 2 x 1 cm pledget was placed in the superior fornix. A 1 x 1 cm pledget was placed in the inferior fornix. The eye was patched shut for 5 minutes. The patch was removed. The eye was sterilely prepped and draped in the usual manner. Lid speculum was placed in the eye. The pledgets were removed. 4-0 black silk sutures were placed around the superior and the inferior rectus muscles to be used as traction. A conjunctival peritomy was made at the 10 o'clock position. Hemostasis was obtained with bipolar cautery. A posterior limbal groove was created using a crescent knife and dissected anteriorly towards the cornea. A sharp point blade was used to create a paracentesis site at the 2 o'clock position. 0.2 cc non preserved Lidocaine was injected into the anterior chamber. A 2.4 mm keratome was used to enter the anterior chamber through the groove. Viscoelastic was injected into the anterior chamber. An anterior capsulotomy was performed using Utrata forceps in a capsulorrhexis fashion. Hydrodissection and hydrodelineation were performed. Phacoemulsification was performed in [id number] technique. Following this, the I/A unit was used to remove residual cortex. Viscoelastic was injected into the capsular bag. The Intraocular lens was placed in the capsular bag. The I/A unit was used to remove residual viscoelastic. The wound was seen to be watertight under high and low pressure, and no sutures were placed. The intraocular lens was well centered. The pressure was adjusted in the eye to normal pressure. The 4-0 black silk sutures and lid speculum were removed. The eye was shielded after Besivance. prednisolone, and Cosopt drops were placed. The patient tolerated the procedure well and was sent to the Recovery Room in good condition.
== END 2020-04-10 12:02 ==
LOC: SC 10:14
PROVIDERS: ATTEND Ophthalmology
DX: H25.813 Combined forms of age-related cataract, bilateral (principal); H57.03 Miosis; E11.9 Type 2 diabetes mellitus without complications; H04.123 Dry eye syndrome of bilateral lacrimal glands; H43.391 Other vitreous opacities, right eye; Z79.4 Long term (current) use of insulin; Z79.899 Other long term (current) drug therapy; I10 Essential (primary) hypertension; E78.00 Pure hypercholesterolemia, unspecified; J44.9 Chronic obstructive pulmonary disease, unspecified; Z87.891 Personal history of nicotine dependence; Z88.5 Allergy status to narcotic agent; Z85.46 Personal history of malignant neoplasm of prostate; I25.2 Old myocardial infarction
CPT/HCPCS: 82962; 66984; V2632; J2250; J3490 ×4; A9270; J0171; J2405; 142; J3010